=== PATIENT | female | born 1980 | race Caucasian/White ===

== ENCOUNTER 2020-06-17 04:10 | Emergency (ER) | payer BC ==
[~2020-06-17] VITALS: Ht 162.6 cm; Wt 72.7 kg
[~2020-06-17 04:10] MED LIST: NO HOME MEDICATIONS
[2020-06-17 04:17] VITALS: TEMP 97.5
[2020-06-17 04:26] LABS: BASO # 0.1 (0.0-0.2); BASO % 0.7 % (0.0-2.0); EOS # 0.1 (0.0-0.7); EOS % 1.3 % (0-4.0); GRAN # 3.4 (1.4-6.5); GRAN % 49.2 % (42.2-75.2); HEMATOCRIT 43.7 % (37.0-47.0); HEMOGLOBIN 14.4 g/dl (12.5-16.0); LYMPH # 2.7 (1.2-3.4); LYMPH % 38.6 % (20.0-51.0); MEAN CELL VOLUME 87 fl (80.0-100.0); MEAN CORPUSCULAR HEMOGLOBIN 29 pg (27.0-31.0); MEAN CORPUSCULAR HGB CONC 33 g/dl (33.0-37.0); MEAN PLATELET VOLUME 10.2 fl (7.4-10.4); MONO # 0.7 (0.1-0.6); MONO % 9.9 % (1.7-9.3); PLATELET COUNT 304 K/mm3 (130-400); RED BLOOD COUNT 5.02 M/mm3 (4.10-5.30); REDCELL DISTRIBUTION WIDTH-CV 12.4 % (11.5-14.5)
[2020-06-17] MEDS ORDERED: NEURONTIN100 MG/CAP PO (04:29)
[2020-06-17 04:40] LABS: ALANINE AMINOTRANSFERASE 24 U/L (4-34); ALBUMIN 4.7 gm/dL (3.5-5.0); ALKALINE PHOSPHATASE 73 U/L (50-136); ANION GAP 12 mmol/L (7-16); AST,SGOT 29 U/L (15-37); BILIRUBIN,TOTAL 0.9 mg/dL (0.0-1.0); BLOOD UREA NITROGEN 9 mg/dL (7-17); CALCIUM 9.7 mg/dL (8.4-10.2); CARBON DIOXIDE 21 mmol/L (22-30); CHLORIDE 106 mmol/L (98-107); CREATININE, serum 0.98 (0.52-1.25); GLUCOSE 106 mg/dL (74-106); LIPASE 91 U/L (23-300); POTASSIUM 3.6 mmol/L (3.4-5.0); SODIUM 138 mmol/L (137-145); TOTAL PROTEIN 8.1 gm/dL (6.4-8.2)
[2020-06-17 04:48] LABS: INR 1.2 (0.8-3.0); PROTHROMBIN TIME 13.3 SECONDS (9.7-12.8)
[2020-06-17 04:50] LABS: PARTIAL THROMBOPLASTIN TIME 36.5 SECONDS (26.0-37.0)
[2020-06-17 04:54] LABS: TROPONIN-I < 0.012 ng/mL (0.000-0.035)
[2020-06-17] MEDS ORDERED: ERGOCALCIFER50000 IU PO (05:11)
[2020-06-17] MEDS ORDERED: ROBAXIN 50500 MG/TAB PO (06:40)
[2020-06-17] MEDS ORDERED: MOTRIN 400400 MG/TAB PO (06:40)
[2020-06-17 07:30] VITALS: BP 111/63; PULSE 53
== END 2020-06-17 07:29 | disposition home or self-care (01) ==
LOC: COL.ER 04:10
PROVIDERS: Emergency Medicine
DX: R07.2 Precordial pain (principal)
CPT/HCPCS: J2270; J2405

== ENCOUNTER → 2020-09-15 | Outpatient (REF) ==
[~2020-09-15] MED LIST changes: +CARAFATE 1GM1 G PO; +ERGOCALCIFER50000 IU PO; +MOTRIN 400400 MG/TAB PO; +NEURONTIN100 MG/CAP PO; +NORCO 325 MG-51 TAB PO; +ROBAXIN 50500 MG/TAB PO; +ZOFRAN ODT4 MG PO
== END ==
LOC: COL.CARD 10:12
DX: R00.1 Bradycardia, unspecified (principal)

== ENCOUNTER 2020-12-30 22:22 | Emergency (ER) | payer BC ==
[~2020-12-30] VITALS: Ht 165.1 cm; Wt 67.7 kg
[~2020-12-30 22:22] MED LIST changes: -CARAFATE 1GM1 G PO; -NORCO 325 MG-51 TAB PO; -ZOFRAN ODT4 MG PO
[2020-12-30 23:15] LABS: BASO % 0.2 % (0.0-2.0); EOS % 0.2 % (0-4.0); GRAN # 6.8 K/mm3 (1.4-6.5); GRAN % 75.2 % (42.2-75.2); HEMATOCRIT 39.7 % (37.0-47.0); HEMOGLOBIN 14.1 g/dl (12.5-16.0); LYMPH # 1.6 K/mm3 (1.2-3.4); LYMPH % 17.3 % (20.0-51.0); MEAN CELL VOLUME 84 fl (80.0-100.0); MEAN CORPUSCULAR HEMOGLOBIN 30 pg (27.0-31.0); MEAN CORPUSCULAR HGB CONC 36 g/dl (33.0-37.0); MEAN PLATELET VOLUME 10.2 fl (7.4-10.4); MONO # 0.6 K/mm3 (0.1-0.6); MONO % 6.9 % (1.7-9.3); PLATELET COUNT 256 K/mm3 (130-400); RED BLOOD COUNT 4.74 M/mm3 (4.10-5.30); REDCELL DISTRIBUTION WIDTH-CV 12.1 % (11.5-14.5)
[2020-12-30 23:34] LABS: ALANINE AMINOTRANSFERASE 16 U/L (0-55); ALBUMIN 4.6 gm/dL (3.5-5.0); ALKALINE PHOSPHATASE 69 U/L (40-150); ANION GAP 11 mmol/L (7-16); AST,SGOT 20 U/L (5-34); BILIRUBIN,TOTAL 0.7 mg/dL (0.2-1.2); BLOOD UREA NITROGEN 11 mg/dL (7-19); CALCIUM 9.7 mg/dL (8.4-10.2); CARBON DIOXIDE 18 mmol/L (22-29); CHLORIDE 109 mmol/L (98-107); CREATININE, serum 1.08 mg/dL (0.57-1.11); GLUCOSE 106 mg/dL (70-99); LIPASE 32 U/L (8-78); SODIUM 138 mmol/L (136-145); TOTAL PROTEIN 7.7 gm/dL (6.2-8.1)
[2020-12-30 23:40] LABS: TROPONIN-I < 0.010 ng/mL (0.00-0.033)
[2020-12-31] MEDS ORDERED: CARAFATE 1GM1 G PO (00:28)
[2020-12-31] MEDS ORDERED: ZOFRAN ODT4 MG PO (00:28)
[2020-12-31] MEDS ORDERED: NORCO 325 MG-51 TAB PO (00:54)
[2020-12-31 01:26] VITALS: BP 120/85; PULSE 81; TEMP 98.3
== END 2020-12-31 01:29 | disposition home or self-care (01) ==
LOC: COL.ER 22:22
PROVIDERS: Emergency Medicine
DX: A04.8 Other specified bacterial intestinal infections (principal); R07.89 Other chest pain
CPT/HCPCS: C9113; J2405; J2550; J3010; J7030

== ENCOUNTER 2023-01-11 08:43 | Outpatient (RCR) | payer OTHER ==
[~2023-01-11 08:43] MED LIST changes: +ATIVAN 0.50.5 MG/TAB PO; +CARAFATE 1GM1 G PO; +MULTI VITAMINS1 TAB PO; +NORCO 325 MG-51 TAB PO; +OSCAL 500 TAB500 MG PO; +PROTONIX20 MG PO; +ROXICODONE 55 MG/TAB PO; +TYLENOL 500MG500 MG PO; +ZOFRAN ODT4 MG PO
== END 2023-01-12 ==
LOC: WSOH
DX: M25.512 Pain in left shoulder (principal); Y99.0 Civilian activity done for income or pay

== ENCOUNTER → 2023-09-12 | Outpatient (CLI) | payer BC | LOC: MHCPAIN 08:54 | DX: M53.3 Sacrococcygeal disorders, not elsewhere classified (principal); G57.82 Other specified mononeuropathies of left lower limb | CPT/HCPCS: G0463 ==